=== PATIENT | female | born 1990 | race Caucasian/White ===

== ENCOUNTER 2020-12-14 21:36 | Emergency (ER) | payer SELFPAY ==
[~2020-12-14] VITALS: Ht 157.5 cm; Wt 56.7 kg
[~2020-12-14 21:36] MED LIST: AMOXICILLIN; ARPZ10T PO; CPR500T PO; DOXY100C2 PO; HYDR-3583 PO; NAPR-243 PO; NITR100C3 PO; TRM50T PO
[2020-12-14 21:41] VITALS: BP 120/85
--- NOTE | 2020-12-14 21:45 | ED EENT ---
History of Present Illness General Chief Complaint: Dental Problems/Pain Stated Complaint: TOOTH ABSCESS/PAIN Source: patient Exam Limitations: no limitations History of Present Illness Date Seen by Provider: Dec 14, 2020 Time Seen by Provider: 21:44 Initial Comments Patient presents with tooth pain beginning today. History of chronic dental problems with multiple prescriptions of antibiotics for dental infection, however has not seen a dentist in a long time. No facial swelling, no fever, no headache, no difficulty swallowing. Allergies and Home Medications Allergies Coded Allergies: Povidone-Iodine (Unverified Allergy, Mild, RASH, 01/01/10) Soap (Unverified Allergy, Mild, RASH, 01/01/10) Sulfamethoxazole (Unverified Allergy, Mild, NAUSEA, 01/01/10) Trimethoprim (Unverified Allergy, Mild, NAUSEA, 01/01/10) Home Medications Amoxicillin 500 Mg Capsule, 500 MG PO TID Prescribed by: CANDY GREY on 12/14/202158 Aripiprazole 10 Mg Tab, 1 TAB PO DAILY, (Reported) Ibuprofen 800 Mg Tablet, 800 MG PO Q8H PRN for PAIN Prescribed by: CANDY GREY on 12/14/202158 Patient Home Medication List Home Medication List Reviewed: Yes Review of Systems Review of Systems Constitutional: No fever, No malaise, No weakness Mouth: pain Throat: denies neck stiffness, denies hoarse, denies painful swallowing, denies difficulty with fluids Respiratory: No cough, No short of breath Physical Exam Vital Signs Vital Signs - First Documented 12/14/20 21:41 Temp 36.7 Pulse 110 Resp 18 B/P (MAP) 120/85 (97) O2 Delivery Room Air Height, Weight, BMI Height: '" Weight: lbs. oz. kg; BMI Method:Stated General Appearance: WD/WN, no apparent distress Mouth/Throat: other (diffuse and severe dental caries without a normal tooth. small abscess left upper premolar) Neck: supple; No lymphadenopathy (R), No lymphadenopathy (L) Progress/Results/Core Measures Results/Orders My Orders Orders - CANDY GREY DO Amoxicillin Capsule (Polymox Capsule) (12/14/20 21:55) Ibuprofen Tablet (Motrin Tablet) (12/14/20 22:00) Medications Given in ED Current Medications Medications Dose Ordered Sig/Yeny Route Start Time Stop Time Status Last Admin Dose Admin Ibuprofen 800 mg ONCE ONCE PO 12/14/20 22:00 12/14/20 22:01 DC 12/14/20 22:08 800 MG Vital Signs/I&O 12/14/20 21:41 Temp 36.7 Pulse 110 Resp 18 B/P (MAP) 120/85 (97) O2 Delivery Room Air Progress Progress Note : Progress Note strongly urged to see a Dentist as antibiotics are not going to improve her condition. Patient full of reasons why she can't see a dentist. Explained the ER was only a band aid for a major problem and encouraged her to keep trying as she needs major dental work. Departure Impression Primary Impression: Dental caries Disposition: HOME, SELF-CARE Condition: Stable Departure-Patient Inst. Decision time for Depature: 21:57 Referrals: SELFREGGIE MD (PCP/Family) Primary Care Physician Patient Instructions: Tooth Decay, Adult (DC) Add. Discharge Instructions: Make a follow up appointment to see a Dentist in 1 week All discharge instructions reviewed with patient and/or family. Voiced understanding. Scripts Ibuprofen (Ibuprofen) 800 Mg Tablet 800 MG PO Q8H PRN for PAIN, #30 TAB 0 Refills Prov: CANDY GREY DO 12/14/20 Amoxicillin (Amoxicillin) 500 Mg Capsule 500 MG PO TID, #21 CAP 0 Refills Prov: HERRERASTINECANDY DO 12/14/20 CANDY GREY DO Dec 14, 2020 21:45
[2020-12-14] MEDS ORDERED: AMOXICILLIN 500 MG (POLYMOX) CAP PO STA (21:55)
[2020-12-14] MEDS ORDERED: IBUP-1780 PO (21:59)
[2020-12-14] MEDS ORDERED: AMOX500C2 PO (21:59)
[2020-12-14] MEDS ORDERED: IBUPROFEN 800 MG (MOTRIN) TAB PO ONE (22:00)
== END 2020-12-14 22:11 | disposition home or self-care (01) ==
LOC: EDUNIT# 21:36 → ER FS 21:37
DX: K02.9 Dental caries, unspecified (principal); K04.7 Periapical abscess without sinus; Z88.1 Allergy status to other antibiotic agents; Z88.2 Allergy status to sulfonamides; Z88.8 Allergy status to other drugs, medicaments and biological substances
CPT/HCPCS: 99283